=== PATIENT | male | born 1960 | race American Indian/Alaskan Native ===

== ENCOUNTER 2021-12-07 06:10 | Emergency (ER) | payer OTHER ==
[2021-12-07 08:08] VITALS: BP 177/98
--- NOTE | 2021-12-07 08:28 | Emergency Department Report ---
HPI - General Chief Complaint: Neuro Symptoms/Deficit Time Seen by Provider: 12/07/21 08:09 - HPI HPI: MSE 7 The patient is a 61-year-old male present with chief complaint of left hand weakness and numbness. The patient states he works 2 jobs and got off his first job this morning at 01: 30 made at home by 02: 00. The patient states he fell asleep on the sofa and woke up at 04: 30 to go to his second job. The patient states 5 minutes later when he was in the shower he noticed he had weakness and numbness in his left hand when he was trying to bathe. The patient states he is left-handed and was unable to control his left hand for approximately 30 minutes. Patient states the weakness gradually improved but he still has numbness in his hand currently. Patient denies numbness or weakness elsewhere in his body including his left upper extremity and left lower extremity. Patient denies dysarthria or dysphagia. ED Past Medical Hx - Past Medical History Additional medical history: Gout - Surgical History Past Surgical History?: No - Family History Family history: no significant - Social History Smoking Status: Never Smoker Substance Use Type: None (Denies illicit drug use), Alcohol (Occasional) - Medications Home Medications: Home Medications Medication Instructions Recorded Confirmed Last Taken Type lisinopriL [Zestril TAB] 10 mg PO QDAY #30 tablet 07/12/13 Unknown Rx ED Review of Systems ROS: Stated complaint: LEFT ARM/HAND ISSUES Other details as noted in HPI Constitutional: no symptoms reported Eyes: denies: eye pain ENT: denies: throat pain Respiratory: no symptoms reported Cardiovascular: denies: chest pain Endocrine: no symptoms reported Gastrointestinal: denies: abdominal pain Genitourinary: denies: dysuria Musculoskeletal: denies: back pain Neurological: weakness, paresthesias Physical Exam - Physical Exam Vital Signs: Vital Signs 12/07/21 08:05 Temperature 98.3 F Pulse Rate 72 Respiratory 16 Rate Blood Pressure 177/98 [Left] O2 Sat by Pulse 98 Oximetry Physical Exam: GENERAL: The patient is well-developed well-nourished male standing in room not appearing to be in acute distress. [] HEENT: Normocephalic. Atraumatic. Extraocular motions are intact. Patient has moist mucous membranes. NECK: Supple. Trachea midline CHEST/LUNGS: Clear to auscultation. There is no respiratory distress noted. HEART/CARDIOVASCULAR: Regular. There is no tachycardia. There is no gallop rub or murmur. ABDOMEN: Abdomen is soft, nontender. Patient has normal bowel sounds. There is no abdominal distention. SKIN: There is no rash. There is no edema. There is no diaphoresis. NEURO: The patient is awake, alert, and oriented. The patient is cooperative. Cranial nerves II through XII grossly intact. The patient has normal speech and gait. Patient complains of subjective tingling in the left hand when compared to the right. Intact sensation to light touch bilaterally. GCS 15. NIHSS = 1 MUSCULOSKELETAL: Negative Phalen's test. There is no evidence of acute injury. ED Course Vital Signs 12/07/21 08:05 Temperature 98.3 F Pulse Rate 72 Respiratory 16 Rate Blood Pressure 177/98 [Left] O2 Sat by Pulse 98 Oximetry ED Medical Decision Making - Lab Data Result diagrams: 12/07/21 08:49 12/07/21 08:49 Laboratory Tests 12/07/21 12/07/21 12/07/21 08:49 08:49 08:49 WBC 4.9 RBC 4.15 Hgb 12.7 Hct 38.6 MCV 93 MCH 31 MCHC 33 RDW 17.9 H Plt Count 247 Lymph % (Auto) 31.7 Nolan % (Auto) 10.3 H Eos % (Auto) 5.7 H Baso % (Auto) 0.7 Lymph # (Auto) 1.6 Nolan # (Auto) 0.5 Eos # (Auto) 0.3 Baso # (Auto) 0.0 Seg Neutrophils % 51.6 Seg Neutrophils # 2.6 PT 13.5 INR 0.93 APTT 27.9 Thrombin Time 15.8 Sodium 138 Potassium 4.1 Chloride 100.6 Carbon Dioxide 24 Anion Gap 18 BUN 15 Creatinine 0.9 Estimated GFR > 60 BUN/Creatinine Ratio 17 Glucose 116 H Calcium 9.5 Total Creatine Kinase 464 H CK-MB (CK-2) 5.7 H CK-MB (CK-2) Rel Index 1.2 Troponin T < 0.010 - EKG Data -: EKG Interpreted by Mo EKG shows normal: sinus rhythm Rate: normal - EKG Data When compared to previous EKG there are: previous EKG unavailable Interpretation: other (No ischemic changes seen) - Radiology Data Radiology results: report reviewed (CT head), image reviewed (CT head) [facility] [address] [id number] Cat Scan Report Signed Patient: SAAD ROOT MR#: [id number] 89 : 1960 Acct:[id number] Age/Sex: 61 / M ADM Date: 12/07/21 Loc: ED Attending Dr: Ordering Physician: CIRO MARTINEZ MD Date of Service: 12/07/21 Procedure(s): CT head/brain wo con Accession Number(s): [id number] cc: CIRO MARTINEZ MD CT HEAD WITHOUT CONTRAST INDICATION / CLINICAL INFORMATION: Left hand weakness and numbness. TECHNIQUE: All CT scans at this location are performed using CT dose reduction for ALARA by means of automated exposure control. COMPARISON: None available. FINDINGS: HEMORRHAGE: No evidence of intracranial hemorrhage or extra-axial fluid collection. EXTRA-AXIAL SPACES: Cortical sulci, sylvian fissures and basilar cisterns have an unremarkable appearance. VENTRICULAR SYSTEM: Incidental note is made of a small cavum septum pellucidum. The third and lateral ventricles are of normal size and configuration. CEREBRAL PARENCHYMA: No areas of abnormal brain parenchymal attenuation are identified. There is no indication of recent infarction. MIDLINE SHIFT OR HERNIATION: There is no mass effect. CEREBELLUM / BRAINSTEM: Brainstem and cerebellum have an unremarkable appearance. MIDLINE STRUCTURES:No abnormalities of the pituitary gland or pineal region are identified. INTRACRANIAL VESSELS: Note is made of subtle, potential hyperintense "dots" in the right sylvian fissure. This could reflect the presence of small thromboemboli in the M2 MCA branches on the right. Correlation with MRI brain would be useful in detection of associated early ischemic changes, if any. Alternatively, CTA head and neck could be utilized for further evaluation if clinically warranted. ORBITS: visualized portions of the orbits have an unremarkable appearance. SOFT TISSUES of HEAD: No significant abnormality. CALVARIUM: Evaluation of bone windows reveals no abnormalities. PARANASAL SINUSES / MASTOID AIR CELLS: Visualized portions of the paranasal sinuses are free from inflammatory mucosal disease. Mastoid air cells are normally pneumatized. IMPRESSION: 1. 2 small hyperintense foci in the right sylvian fissure could be a manifestation of distal thromboembolic disease. Please refer to the above discussion. Signer Name: Arian Lee MD Signed: 12/07/2021 9:04 AM Workstation Name: [id number] Transcribed By: Dictated By: Arian Lee MD Electronically Authenticated By: Arian Lee MD Signed Date/Time: 12/07/21903 DD/ 8 TD/TT: Print Cancel - Differential Diagnosis CVA, TIA, peripheral neuropathy Critical care attestation.: If time is entered above; I have spent that time in minutes in the direct care of this critically ill patient, excluding procedure time. ED Disposition Clinical Impression: CVA (cerebral vascular accident), Abnormal CT scan, head Disposition: 09 ADMITTED INPATIENT Is pt being admited?: Yes Does the pt Need Aspirin: Yes Condition: Fair Time of Disposition: 09:51 (Hospitalist called ())
[2021-12-07 09:00] LABS: Basophils % (Auto) 0.7 % (0.0-1.8); Eosinophils # (Auto) 0.3 K/mm3 (0.0-0.4); Eosinophils % (Auto) 5.7 % (0.0-4.3); Hematocrit 38.6 % (35.5-45.6); Hemoglobin 12.7 gm/dl (11.8-15.2); Lymphocytes # (Auto) 1.6 K/mm3 (1.2-5.4); Lymphocytes % (Auto) 31.7 % (13.4-35.0); Mean Corpuscular HGB Conc 33 % (32-34); Mean Corpuscular Volume 93 fl (84-94); Monocytes # (Auto) 0.5 K/mm3 (0.0-0.8); Monocytes % (Auto) 10.3 % (0.0-7.3); Platelet Count 247 K/mm3 (140-440); Red Blood Count 4.15 M/mm3 (3.65-5.03); Red Cell Distribution Width 17.9 % (13.2-15.2)
--- NOTE | 2021-12-07 09:08 | Cat Scan Report ---
CT HEAD WITHOUT CONTRAST INDICATION / CLINICAL INFORMATION: Left hand weakness and numbness. TECHNIQUE: All CT scans at this location are performed using CT dose reduction for ALARA by means of automated e xposure control. COMPARISON: None available. FINDINGS: HEMORRHAGE: No evidence of intracranial hemorrhage or extra-axial fluid collection. EXTRA-AXIAL SPACES: Cortical sulci, sylvian fissures and basilar cisterns have an unremarkable appear ance. VENTRICULAR SYSTEM: Incidental note is made of a small cavum septum pellucidum. The third and lateral ventricles are of normal size and configuration. CEREBRAL PARENCHYMA: No areas of abnormal brain parenchymal attenuation are identified. There is no i ndication of recent infarction. MIDLINE SHIFT OR HERNIATION: There is no mass effect. CEREBELLUM / BRAINSTEM: Brainstem and cerebellum have an unremarkable appearance. MIDLINE STRUCTURES:No abnormalities of the pituitary gland or pineal region are identified. INTRACRANIAL VESSELS: Note is made of subtle, potential hyperintense "dots" in the right sylvian fiss ure. This could reflect the presence of small thromboemboli in the M2 MCA branches on the right. Jeffery elation with MRI brain would be useful in detection of associated early ischemic changes, if any. Alt ernatively, CTA head and neck could be utilized for further evaluation if clinically warranted. ORBITS: visualized portions of the orbits have an unremarkable appearance. SOFT TISSUES of HEAD: No significant abnormality. CALVARIUM: Evaluation of bone windows reveals no abnormalities. PARANASAL SINUSES / MASTOID AIR CELLS: Visualized portions of the paranasal sinuses are free from inf lammatory mucosal disease. Mastoid air cells are normally pneumatized. IMPRESSION: 1. 2 small hyperintense foci in the right sylvian fissure could be a manifestation of distal thromboe mbolic disease. Please refer to the above discussion. Signer Name: Arian Lee MD Signed: 12/07/2021 9:04 AM Workstation Name: [id number]
[2021-12-07 09:23] LABS: INR 0.93 (0.87-1.13); Partial Thromboplastin Time 27.9 Sec. (24.2-36.6); Thrombin Time 15.8 Sec. (15.1-19.6)
[2021-12-07 09:26] LABS: Creatine Kinase MB 5.7 ng/mL (0.0-4.0)
[2021-12-07 09:27] LABS: BUN/Creatinine Ratio 17; Blood Urea Nitrogen 15 mg/dL (9-20); Calcium 9.5 mg/dL (8.4-10.2); Hemolysis Index 14
[2021-12-07] MEDS ORDERED: ASPIRIN 325 MG TAB PO ONE (09:51)
--- NOTE | 2021-12-07 10:17 | Electrocardiograph Report ---
[facility] Test Date: 2021-12-07 Test Time: 08:33:48 Pat Name: SAAD ROOT Department: Room: Gender: M Paver Layer: LU : 1960 Requested By: CIRO MARTINEZ Order Number: [id number] Reading MD: Antonio Lane Measurements Intervals [place] Rate: 62 P: 185 CT: 79 QRS: 49 QRSD: 106 T: 65 QT: 446 QTc: 453 Interpretive Statements Normal sinus rhythm Probable left ventricular hypertrophy No previous ECG available for comparison Electronically Signed On 12-07-2021 10:16:[address]
== END 2021-12-07 16:19 | disposition admitted as inpatient to this hospital (09) ==
LOC: ED 06:10
DX: I62.9 Nontraumatic intracranial hemorrhage, unspecified (principal); M10.9 Gout, unspecified; Z72.89 Other problems related to lifestyle; Z79.899 Other long term (current) drug therapy
CPT/HCPCS: 36415; 70450; 80048; 82550; 82553; 84484; 85025; 85610; 85670; 85730; 93005; 93010; 99284